=== PATIENT | male | born 1980 | race Caucasian/White ===

== ENCOUNTER 2023-07-29 12:32 | Emergency (ER) | payer OTHER, SELFPAY ==
[2023-07-29 12:34] VITALS: BP 182/116; PULSE 90; RESP 14; TEMP 36.2; O2SAT 97; BMI 35.3
--- NOTE | 2023-07-29 12:47 | EKG12_ITS ---
Test Reason : CONFUSION Blood Pressure : / mmHG Vent. Rate : 083 BPM Atrial Rate : 083 BPM P-R Int : 166 ms QRS Dur : 088 ms QT Int : 356 ms P-R-T Axes : 037 -07 -08 degrees QTc Int : 418 ms Normal sinus rhythm Minimal voltage criteria for LVH, may be normal variant ( R in aVL ) Borderline ECG Confirmed by ALEKSANDR GARCIA, ADY ([id number]), news videotape editor MAREN MCARTHUR ([id number]) on 08/02/2023 8:15:14 AM Referred By: ASHA Confirmed By:SIRI BRANDON MD
--- NOTE | 2023-07-29 12:48 | EX.ED.DYSGE1 ---
HPI History of Present Illness Chief Complaint: Confusion Narrative Narrative: 43-year-old male who denies significant past medical history presents with his because of confusion and problems concentrating. Patient states that his symptoms began yesterday morning. He woke up, and all day yesterday he was having problems with concentration and was not acting normally. He denies any recent trauma to his head. His relates history that it took him a while to write a 2 sentence email. He had problems typing and his password at work, so he was sent home from there. Yesterday they were playing a card game that required reading which she was having difficulty doing and concentrating. This is not normal for him. He states today he might have a slight headache in the occiput but denies any other neurological symptoms, no numbness or tingling of his arms or legs. No recent nausea or vomiting. No chest pain or shortness of breath. [facility] Medical History (Updated 07/29/23 @ 15:23 by Abram Bhakta MD) Diabetes Hypercholesteremia Home Medications pantoprazole 40 mg tablet,delayed release 40 mg PO BID 06/26/13 [History Last Taken 06/26/13] Allergy/AdvReac Type Severity Reaction Status Date / Time acetaminophen [From Vicodin] AdvReac Nausea Verified 07/29/23 12:34 hydrocodone bitartrate AdvReac Nausea Verified 07/29/23 12:34 [From Vicodin] Social History Smoking Status: Never smoker ROS ROS ED ROS Narrative Constitutional: No fever, no chills. HEENT: No sore throat. No neck pain. No loss of vision. No rhinorrhea. Cardiovascular: No chest pain. No palpitations. No pedal edema. Respiratory: No cough, no shortness of breath. Abdominal: No abdominal pain. No nausea. No vomiting. Genitourinary: No dysuria. No hematuria. Musculoskeletal: No myalgias. No arthralgias. Neurologic: Questionable headaches. No dizziness. No lightheadedness. Problems with concentration, reported confusion. Skin: No rash. No change in color. Psychiatric: No depression. No anxiety. EXAM Physical Exam Narrative Exam Narrative: Afebrile. Vital signs noted. HEENT: Normocephalic. Atraumatic. PERRL, EOMI. Neck soft and supple. No point tenderness or step off. Cardiovascular: Regular rate and rhythm. No murmurs, rubs, or gallops appreciated. Respiratory: No tachypnea. Lungs clear to auscultation bilaterally. Gastrointestinal: Abdomen soft, nontender, with normoactive bowel sounds. No rebound or guarding. Neurological: Awake. Alert. Nonfocal, nonlateralizing. Sometimes slow to respond to certain questions. Skin: No rash. Normal color. No pallor. Musculoskeletal: No pedal edema. Full range of motion extremities. Psychiatric: Mild confusion and problems concentrating. Almost tearful on examination. Const Vital Signs: 07/29/23 12:34 07/29/23 13:32 Temperature 97.2 F L Temperature Source Temporal Pulse Rate 90 70 Respiratory Rate 14 20 H Blood Pressure 182/116 H 147/95 H Blood Pressure Mean 138 112 Pulse Ox 97 93 Oxygen Delivery Method Room Air Room Air MDM MDM MDM Narrative Medical decision making narrative: Concern would be in the differential for TIA versus mass versus intracranial hemorrhage versus stroke. I have low suspicion for hepatic encephalopathy as history and physical is not consistent with that. I do not feel that he is intoxicated but alcohol and urine for drugs of abuse will be obtained along with ammonia level. I do feel CT imaging of the brain is indicated. He does have elevated blood pressure so he may be having more of a hypertensive encephalopathy. He will be monitored before given any blood pressure lowering medication. Upon repeat examination at approximately 1520, his blood pressure is 127 systolic. He has been resting comfortably. I reviewed his laboratory work and he has slight elevation of his WBC count at 11.2 which I think is nonspecific, hemoglobin normal at 15.1, hematocrit 44.3, platelet count normal at 230. CMP is grossly unremarkable except for glucose slightly elevated at 210 but he has normal anion gap of 8 so I have no concern for diabetic ketoacidosis. Sodium is normal at 137, potassium 3.8. BUN is slightly elevated at 20 with creatinine 1.09, urinalysis shows no evidence of infection, I do not feel antibiotics are indicated. Ethyl alcohol is negative. Additionally, urine for drugs of abuse is also negative. As his blood pressure has normalized, I have low concern for hypertensive encephalopathy. I reviewed the radiology report for his head CT which shows no evidence of acute hemorrhage. Although he may have ethmoid sinusitis, I do not feel antibiotics are indicated. At this point in time, upon repeat examination, with negative work-up here, I do not feel he requires observation or admission. I discussed this with his and the patient and they are agreeable to discharge. He may be have more of stress and anxiety type reactions. He was given a note to be off work for the next 2 days. I feel he be discharged to follow-up with his primary care provider. Return instructions to the emergency department were reviewed. Disposition is discharged home in stable condition. History & Record Review Discussion w/independent historian: Patient and Family Additional record(s) reviewed:: Prior ED visit Lab Data Attestation: I reviewed the patient's lab results. Labs: Laboratory Results - last 24 hr 07/29/23 07/29/23 13:03 13:45 WBC 11.2 H RBC 5.02 Hgb 15.1 Hct 44.3 MCV 88.2 MCH 30.1 MCHC 34.1 RDW Std Deviation 42.3 RDW Coeff of Sharita 13.1 Plt Count 230 MPV 11.4 Sodium 137 Potassium 3.8 Chloride 105 Carbon Dioxide 24.0 Anion Gap 8 BUN 20 H Creatinine 1.09 Estim Creat Clear Calc 91.16 Est GFR (MDRD) Af Amer 95 Est GFR (MDRD) Non-Af 79 BUN/Creatinine Ratio 18.3 Glucose 210 H Calcium 9.0 Total Bilirubin 0.40 AST 20 ALT 39 Alkaline Phosphatase 90 Total Protein 7.5 Albumin 3.9 Globulin 3.6 Albumin/Globulin Ratio 1.1 Urine Color Yellow Urine Clarity Clear Urine pH 5.0 Ur Specific [place] 1.025 Urine Protein 30 H Urine Glucose (UA) 250 H Urine Ketones 5 H Urine Occult Blood 10 H Urine Nitrite Negative Urine Bilirubin Negative Urine Urobilinogen Normal Ur Leukocyte Esterase 25 H Urine RBC 0-5 SEEN Urine WBC 0 SEEN Ur Squamous Epith Cells 0 SEEN Urine Bacteria 0 SEEN Urine Mucus 0 SEEN Urine Opiates Screen NEGATIVE Urine Methadone Screen NEGATIVE Ur Barbiturates Screen NEGATIVE Ur Phencyclidine Scrn NEGATIVE Ur Amphetamines Screen NEGATIVE MDMA (Ecstasy) Screen NEGATIVE U Benzodiazepines Scrn NEGATIVE Urine Cocaine Screen NEGATIVE U Cannabinoids Screen NEGATIVE Ur Drug Screen Comment Ethyl Alcohol 5.0 Radiography Diagnostic Testing: Clinical Impression(s) from Imaging Studies Brain CT 07/29/23 13:25 IMPRESSION: Mild degree of mucosal thickening of the ethmoid sinuses bilaterally. Electronically Signed: Ang Rodriguez MD at 13:59 EST , Discharge Plan Triage Chief Complaint: Confusion ED Provider: Abram Bhakta Dx/Rx/DC Orders Clinical Impression: Disturbed concentration, Acute confusion Instructions: ED Confusion Prescriptions: No Action pantoprazole 40 MG tablet 40 mg PO BID Stand Alone Forms: ED Work / School Excuse Primary Care Provider: Randy Washington Referrals: Care Physician,No Primary [Non-Staff] - Activity Restrictions/Additional Instructions: Follow-up with Vj Washington on Wednesday. Call the office today for an appointment to be seen early next week. Disposition Disposition: Home, Self Care
[2023-07-29 13:12] LABS: Hematocrit 44.3 % (40-54); Hemoglobin 15.1 g/dL (13.0-16.5); Mean Corp Hgb Conc 34.1 g/dL (32-36); Mean Corpuscular Hgb 30.1 pg (27.0-32.0); Mean Corpuscular Volume 88.2 fL (80-94); Mean Platelet Vol. 11.4 fl (6.2-12.0); Platelet Count 230 K/mm3 (150-450); RBC Distribution Width CV 13.1 % (11.6-14.6); RBC Distribution Width SD 42.3 fl (35.1-43.9); Red Blood Count 5.02 M/mm3 (4.6-6.2); White Blood Count 11.2 K/mm3 (4.4-11.0)
--- NOTE | 2023-07-29 13:25 | CT_ITS ---
STUDY: CT BRAIN WITHOUT CONTRAST REASON FOR EXAM: Male, 43 years old. Confusion RADIATION DOSAGE (If Supplied By Facility): CTDIvol = ( 44.99 ) mGy, DLP = ( 863.60 ) mGycm TECHNIQUE: Transaxial CT imaging of the brain was performed without administration of intravenous contrast material. Individualized dose optimization techniques were used for this CT. COMPARISON: No relevant priors. FINDINGS: Normal soft tissue structures. Normal calvarium. Normal size ventricles and extra-axial spaces for the patient''s age. Normal white matter tracts of the cerebral hemispheres. Normal basal ganglia and thalami. Normal brainstem. Normal cerebellum. There is no intracranial hemorrhage. There are no findings of an acute ischemic infarction. Mild degree of mucosal thickening of the ethmoid sinuses bilaterally. CT/Brain/Head without Contrast IMPRESSION: Mild degree of mucosal thickening of the ethmoid sinuses bilaterally. Electronically Signed: Ang Rodriguez MD at 13:59 EST ,
[2023-07-29 13:28] LABS: ALB/GLOB Ratio 1.1 RATIO (0.9-2.4); AST(SGOT) 20 U/L (15-37); Alanine Aminotransfer ALT/SGPT 39 U/L (16-61); Albumin, Serum 3.9 g/dL (3.2-5.0); Alkaline Phosphatase 90 U/L (45-117); Anion Gap 8 (5-15); BUN 20 mg/dL (7-18); BUN/Creat Ratio 18.3 RATIO (10-20); Chloride 105 mmol/L (98-107); Creatinine, Serum 1.09 mg/dL (0.70-1.30); EST Glomerular Filtration Rate 79 mL/min (>60); Est Glom Filt Rate - Afr Amer 95 mL/min (>60); Estimated Creatinine Clearance 91.16 ml/min; Globulin 3.6 g/dL (2.2-4.2); Glucose 210 mg/dL (74-106); Potassium 3.8 mmol/L (3.5-5.1); Protein, Total 7.5 g/dL (6.4-8.2); Sodium Level 137 mmol/L (136-145)
[2023-07-29 13:32] VITALS: BP 147/95; PULSE 70; RESP 20; O2SAT 93
[2023-07-29 13:50] LABS: Bacteria 0 SEEN /hpf (None Seen); Mucous, Urine 0 SEEN /hpf (<or=2+); Squamous Epithelial Cells - UA 0 SEEN /hpf (0-5); White Blood Cells 0 SEEN /hpf (0-5)
[2023-07-29 13:59] LABS: Color, Urine Yellow (Yellow); Glucose, Dipstick 250 mg/dl (Normal); Ketone-Dipstick 5 mg/dl (Negative); Leukocyte Esterase-Dipstick 25 /ul (Negative); Nitrite-Dipstick Negative (Negative); Occult Blood-Urine 10 /ul (Negative); Protein-Dipstick 30 mg/dl (Negative); Specific Gravity, Urine 1.025 (1.002-1.030); Urine Bilirubin Dipstick Negative (Negative); Urine Clarity Clear (Clear); Urine Urobilinogen Normal (Normal)
[2023-07-29 14:06] LABS: Red Blood Cells-Urine 0-5 SEEN /hpf (0-5)
[2023-07-29 14:07] LABS: Amphetamine Urine VISTA NEGATIVE (<1000 ng/mL); Barbiturate Urine VISTA NEGATIVE (< 200 ng/mL); Benzodiazepine Urine VISTA NEGATIVE (< 200 ng/mL); Cocaine Urine VISTA NEGATIVE (< 300 ng/mL); Ecstacy Urine VISTA NEGATIVE (< 500 ng/mL); Methadone Urine VISTA NEGATIVE (< 300 ng/mL); PCP Urine VISTA NEGATIVE (< 25 ng/mL); THC Urine VISTA NEGATIVE (< 50 ng/mL); Vista UDS pH Range 5
[2023-07-29 15:34] VITALS: BP 127/86; PULSE 72; RESP 16; O2SAT 98
== END 2023-07-29 15:35 | disposition home or self-care (01) ==
PROVIDERS: Emergency Provider Emergency Medicine; PCP Physician Assistant; Visit Provider Emergency Medicine
DX: R41.0 Disorientation, unspecified (principal); E11.9 Type 2 diabetes mellitus without complications; E78.00 Pure hypercholesterolemia, unspecified
CPT/HCPCS: 70450; 80053; 80307; 81001; 82077; 85027; 87804; 93005; 99284; A4216